=== PATIENT | male | born 1980 | race African-American/Black ===

== ENCOUNTER 2018-05-09 18:17 | Observation (INO) ==
[2018-05-09 21:09] LABS: Baso # (Auto) 0.1 th/mm3 (0.0-0.2); Eos # (Auto) 0.1 th/mm3 (0.0-0.4); Eos % (Auto) 1.3 % (0.0-4.0); Hematocrit 45.7 % (39.0-51.0); Lymph # (Auto) 2.1 th/mm3 (1.0-4.8); Lymph % (Auto) 27.4 % (9.0-44.0); Mean Corpuscular HGB Conc 32.8 % (32.0-36.0); Mean Corpuscular Volume 85.3 fL (80.0-100.0); Mean Platelet Volume 11.1 fL (7.0-11.0); Mono # (Auto) 0.7 th/mm3 (0.0-0.9); Neut # (Auto) 4.6 th/mm3 (1.8-7.7); Neut % (Auto) 61.3 % (16.0-70.0); Platelet Count 132 th/mm3 (150-450); Red Blood Count 5.36 mil/mm3 (4.50-5.90); Red Cell Distribution Width 12.4 % (11.6-17.2); White Blood Count 7.5 th/mm3 (4.0-11.0)
[2018-05-09 21:12] LABS: Bilirubin,Urine Negative (Negative); Clarity,Urine Clear (Clear); Color,Urine Colorless (Yellw/Straw); Glucose,Urine (UA) 500 or Greater mg/dL (Negative); Leukocyte Esterase,Urine Negative (Negative); Nitrite,Urine Negative (Negative); Specific Gravity,Urine 1.036 (1.002-1.035)
[2018-05-09 21:44] LABS: Alanine Aminotransferase 31 U/L (12-78); Alkaline Phosphatase 124 U/L (45-117); Anion Gap 9 meq/L (5-15); Aspartate Aminotransferase 19 U/L (15-37); Blood Urea Nitrogen 12 mg/dL (7-18); Calcium 8.9 mg/dL (8.5-10.1); Carbon Dioxide 26.1 meq/L (21.0-32.0); Chloride 96 meq/L (98-107); Glomerular Filtration Rate 68 mL/min (>89); Sodium 131 meq/L (136-145); Total Protein 7.7 g/dL (6.4-8.2)
[2018-05-09 21:47] LABS: Glucose,Random 562 mg/dL (74-106)
[2018-05-09] MEDS ORDERED: Sod Chloride 0.9% Inj 1,000 ML IV.SIG ONE ×2 (22:02→23:21)
--- NOTE | 2018-05-09 22:18 | ED ---
HPI General Chief complaint: Weakness Stated complaint: gen weakness Time Seen by Provider: 05/09/18 22:02 Source: patient Mode of arrival: ambulatory Limitations: no limitations History of Present Illness HPI Narrative: Patient is a 38-year-old male coming in complaining of a few days of excessive thirst increased urination feeling weak somewhat confused. He has a family history of diabetes but he does not have diabetes himself he has no medical history he appears to be a very fit 38-year-old male fingerstick and chemistry on the lab initial blood work done from the ER waiting room is a glucose of 526 patient denies having any knowledge of having diabetes prior. But is having classic polydipsia polyuria and weakness patient's vitals in the ER within normal limits he is given a liter of fluid 4 units of insulin will probably be admitted for education and starting on a anti-hyper glycemic denies diet diarrhea denies nausea denies vomiting denies abdominal pain he does not appear to be breathing heavy does not have any signs of being acidotic he did not take any medication for this he has not seen a doctor in a while MD Complaint: generalized weakness Related Data Previous Rx's Medication Instructions Recorded blood sugar diagnostic [OneTouch #90 each 05/10/18 Ultra Blue Test Strip] blood-glucose meter [Blood Glucose #1 each 05/10/18 Monitoring] insulin detemir U-100 [Levemir 12 unit SUB-Q HS #1 vial 05/10/18 U-100 Insulin] insulin regular human [Novolin R 7 unit SUB-Q TIDAC #1 vial 05/10/18 Regular U-100 Insuln] insulin syringe-needle U-100 #100 each 05/10/18 lancets [BD Ultra Fine Lancets] #100 each 05/10/18 Allergies Allergy/AdvReac Type Severity Reaction Status Date / Time No Known Allergies Allergy Unverified 05/09/18 19:47 Review of Systems ROS: all other systems reviewed are negative (Polydipsia polyuria generalized weakness mild confusion) [facility] Medical History Medical History Patient denies medical problems (Acute) Surgical History Surgical History No history of previous surgery (Acute) Family History Family History Other Diabetes Social History Social History Substance History: No History of Abuse Second Hand Smoke Exposure: No Smoking Status: Former smoker How Often Do You Have a Drink Containing Alcohol: Monthly or less Recent Travel in [place] within the Last 8 Weeks: No Recent Out of Country Travel within the Last 8 Weeks: No Immunization History Tetanus Immunization: >5 Years Hx Influenza Vaccine This Season: No Exam Narrative Exam Narrative: GENERAL: Nontoxic appearing awake alert no signs of acidosis SKIN: Warm and dry. HEAD: Atraumatic. Normocephalic. EYES: Pupils equal and round. No scleral icterus. No injection or drainage. ENT: No nasal bleeding or discharge. Mucous membranes pink and moist. NECK: Trachea midline. No JVD. CARDIOVASCULAR: Regular rate and rhythm. RESPIRATORY: No accessory muscle use. Clear to auscultation. Breath sounds equal bilaterally. GASTROINTESTINAL: Abdomen soft, non-tender, nondistended. Hepatic and splenic margins not palpable. MUSCULOSKELETAL: Extremities without clubbing, cyanosis, or edema. No obvious deformities. NEUROLOGICAL: Awake and alert. No obvious cranial nerve deficits. Motor grossly within normal limits. Five out of 5 muscle strength in the arms and legs. Normal speech. PSYCHIATRIC: Appropriate mood and affect; insight and judgment normal. Course Initial Documented Vital Signs Temperature 98.2 F 05/09/18 19:33 Pulse Rate 75 05/09/18 19:33 Respiratory Rate 16 05/09/18 19:33 Blood Pressure 129/77 05/09/18 19:33 Pulse Oximetry 99 05/09/18 19:33 Last Documented Vital Signs Temperature 98.2 F 05/10/18 16:00 Pulse Rate 70 05/10/18 16:00 Respiratory Rate 18 05/10/18 16:00 Blood Pressure 111/79 05/10/18 16:00 Pulse Oximetry 99 05/10/18 16:00 Medical Decision Making [facility] Narrative Medical decision making narrative: IV fluid and INSULIN no anion gap and no need for insulin drip at this time in ER admitted for further managemt of his new onset diabetes Medical Screen Exam Complete: Yes Emergency Medical Condition: Yes Differential Diagnosis Differential Diagnosis: This is new onset diabetes versus a viral infection causing pancreatitis causing lack of insulin causing new onset diabetes versus exogenous ingestion of large amounts of sugar versus other Lab Data Result diagrams: 05/09/18 20:45 05/09/18 20:45 Lab Results 05/09/18 05/09/18 05/09/18 Range/Units 20:18 20:45 20:45 WBC 7.5 (4.0-11.0) th/mm3 RBC 5.36 (4.50-5.90) mil/mm3 Hgb 15.0 (13.0-17.0) gm/dL Hct 45.7 (39.0-51.0) % MCV 85.3 (80.0-100.0) fL MCH 28.0 (27.0-34.0) pg MCHC 32.8 (32.0-36.0) % RDW 12.4 (11.6-17.2) % Plt Count 132 L (150-450) th/mm3 MPV 11.1 H (7.0-11.0) fL Neut % (Auto) 61.3 (16.0-70.0) % Lymph % (Auto) 27.4 (9.0-44.0) % [place] % (Auto) 9.0 H (0.0-8.0) % Eos % (Auto) 1.3 (0.0-4.0) % Baso % (Auto) 1.0 (0.0-2.0) % Neut # (Auto) 4.6 (1.8-7.7) th/mm3 Lymph # (Auto) 2.1 (1.0-4.8) th/mm3 [place] # (Auto) 0.7 (0.0-0.9) th/mm3 Eos # (Auto) 0.1 (0.0-0.4) th/mm3 Baso # (Auto) 0.1 (0.0-0.2) th/mm3 WBC Differential . Differential Comment Auto diff final Sodium 131 L (136-145) meq/L Potassium 4.0 (3.5-5.1) meq/L Chloride 96 L (98-107) meq/L Carbon Dioxide 26.1 (21.0-32.0) meq/L Anion Gap 9 (5-15) meq/L BUN 12 (7-18) mg/dL Creatinine 1.19 (0.60-1.30) mg/dL Estimated GFR 68 L (>89) mL/min POC Glucose (68-110) mg/dl Random Glucose 562 H* (74-106) mg/dL Hemoglobin A1c (4.3-6.0) % Insulin Level (2.0-19.6) uIU/mL Calcium 8.9 (8.5-10.1) mg/dL Total Bilirubin 0.5 (0.2-1.0) mg/dL AST 19 (15-37) U/L ALT 31 (12-78) U/L Alkaline Phosphatase 124 H (45-117) U/L Troponin I Less than 0.02 L (0.02-0.05) ng/mL Total Protein 7.7 (6.4-8.2) g/dL Albumin 4.0 (3.4-5.0) g/dL Beta-Hydroxybutyric Acd (0.00-0.39) mmol/L Urine Color Colorless (Yellw/Straw) Urine Clarity Clear (Clear) Urine pH 6.0 (5.0-8.5) Ur Specific [place] 1.036 H (1.002-1.035) Urine Protein Negative (Neg-Trace) mg/dL Urine Glucose (UA) 500 or greater (Negative) mg/dL Urine Ketones Trace H (Negative) mg/dL Urine Occult Blood Small H (Negative) Urine Nitrate Negative (Negative) Urine Bilirubin Negative (Negative) Urine Urobilinogen Less than 2 (Less than 2) mg/dL Ur Leukocyte Esterase Negative (Negative) Urine WBC 1 (0-5) /hpf Micro UA Comment Culture not ind Ur Microscopic Review Not Reportable Urine Culture Comments Culture not ind 05/09/18 05/09/18 05/10/18 Range/Units 20:45 20:45 08:52 WBC (4.0-11.0) th/mm3 RBC (4.50-5.90) mil/mm3 Hgb (13.0-17.0) gm/dL Hct (39.0-51.0) % MCV (80.0-100.0) fL MCH (27.0-34.0) pg MCHC (32.0-36.0) % RDW (11.6-17.2) % Plt Count (150-450) th/mm3 MPV (7.0-11.0) fL Neut % (Auto) (16.0-70.0) % Lymph % (Auto) (9.0-44.0) % [place] % (Auto) (0.0-8.0) % Eos % (Auto) (0.0-4.0) % Baso % (Auto) (0.0-2.0) % Neut # (Auto) (1.8-7.7) th/mm3 Lymph # (Auto) (1.0-4.8) th/mm3 [place] # (Auto) (0.0-0.9) th/mm3 Eos # (Auto) (0.0-0.4) th/mm3 Baso # (Auto) (0.0-0.2) th/mm3 WBC Differential Differential Comment Sodium (136-145) meq/L Potassium (3.5-5.1) meq/L Chloride (98-107) meq/L Carbon Dioxide (21.0-32.0) meq/L Anion Gap (5-15) meq/L BUN (7-18) mg/dL Creatinine (0.60-1.30) mg/dL Estimated GFR (>89) mL/min POC Glucose 215 H (68-110) mg/dl Random Glucose (74-106) mg/dL Hemoglobin A1c 16.3 H (4.3-6.0) % Insulin Level (2.0-19.6) uIU/mL Calcium (8.5-10.1) mg/dL Total Bilirubin (0.2-1.0) mg/dL AST (15-37) U/L ALT (12-78) U/L Alkaline Phosphatase (45-117) U/L Troponin I (0.02-0.05) ng/mL Total Protein (6.4-8.2) g/dL Albumin (3.4-5.0) g/dL Beta-Hydroxybutyric Acd 0.60 H (0.00-0.39) mmol/L Urine Color (Yellw/Straw) Urine Clarity (Clear) Urine pH (5.0-8.5) Ur Specific [place] (1.002-1.035) Urine Protein (Neg-Trace) mg/dL Urine Glucose (UA) (Negative) mg/dL Urine Ketones (Negative) mg/dL Urine Occult Blood (Negative) Urine Nitrate (Negative) Urine Bilirubin (Negative) Urine Urobilinogen (Less than 2) mg/dL Ur Leukocyte Esterase (Negative) Urine WBC (0-5) /hpf Micro UA Comment Ur Microscopic Review Urine Culture Comments 05/10/18 05/10/18 05/10/18 Range/Units 11:20 12:26 12:52 WBC (4.0-11.0) th/mm3 RBC (4.50-5.90) mil/mm3 Hgb (13.0-17.0) gm/dL Hct (39.0-51.0) % MCV (80.0-100.0) fL MCH (27.0-34.0) pg MCHC (32.0-36.0) % RDW (11.6-17.2) % Plt Count (150-450) th/mm3 MPV (7.0-11.0) fL Neut % (Auto) (16.0-70.0) % Lymph % (Auto) (9.0-44.0) % [place] % (Auto) (0.0-8.0) % Eos % (Auto) (0.0-4.0) % Baso % (Auto) (0.0-2.0) % Neut # (Auto) (1.8-7.7) th/mm3 Lymph # (Auto) (1.0-4.8) th/mm3 [place] # (Auto) (0.0-0.9) th/mm3 Eos # (Auto) (0.0-0.4) th/mm3 Baso # (Auto) (0.0-0.2) th/mm3 WBC Differential Differential Comment Sodium (136-145) meq/L Potassium (3.5-5.1) meq/L Chloride (98-107) meq/L Carbon Dioxide (21.0-32.0) meq/L Anion Gap (5-15) meq/L BUN (7-18) mg/dL Creatinine (0.60-1.30) mg/dL Estimated GFR (>89) mL/min POC Glucose 263 H 230 H (68-110) mg/dl Random Glucose (74-106) mg/dL Hemoglobin A1c (4.3-6.0) % Insulin Level 4.8 (2.0-19.6) uIU/mL Calcium (8.5-10.1) mg/dL Total Bilirubin (0.2-1.0) mg/dL AST (15-37) U/L ALT (12-78) U/L Alkaline Phosphatase (45-117) U/L Troponin I (0.02-0.05) ng/mL Total Protein (6.4-8.2) g/dL Albumin (3.4-5.0) g/dL Beta-Hydroxybutyric Acd (0.00-0.39) mmol/L Urine Color (Yellw/Straw) Urine Clarity (Clear) Urine pH (5.0-8.5) Ur Specific [place] (1.002-1.035) Urine Protein (Neg-Trace) mg/dL Urine Glucose (UA) (Negative) mg/dL Urine Ketones (Negative) mg/dL Urine Occult Blood (Negative) Urine Nitrate (Negative) Urine Bilirubin (Negative) Urine Urobilinogen (Less than 2) mg/dL Ur Leukocyte Esterase (Negative) Urine WBC (0-5) /hpf Micro UA Comment Ur Microscopic Review Urine Culture Comments 05/10/18 Range/Units 16:43 WBC (4.0-11.0) th/mm3 RBC (4.50-5.90) mil/mm3 Hgb (13.0-17.0) gm/dL Hct (39.0-51.0) % MCV (80.0-100.0) fL MCH (27.0-34.0) pg MCHC (32.0-36.0) % RDW (11.6-17.2) % Plt Count (150-450) th/mm3 MPV (7.0-11.0) fL Neut % (Auto) (16.0-70.0) % Lymph % (Auto) (9.0-44.0) % [place] % (Auto) (0.0-8.0) % Eos % (Auto) (0.0-4.0) % Baso % (Auto) (0.0-2.0) % Neut # (Auto) (1.8-7.7) th/mm3 Lymph # (Auto) (1.0-4.8) th/mm3 [place] # (Auto) (0.0-0.9) th/mm3 Eos # (Auto) (0.0-0.4) th/mm3 Baso # (Auto) (0.0-0.2) th/mm3 WBC Differential Differential Comment Sodium (136-145) meq/L Potassium (3.5-5.1) meq/L Chloride (98-107) meq/L Carbon Dioxide (21.0-32.0) meq/L Anion Gap (5-15) meq/L BUN (7-18) mg/dL Creatinine (0.60-1.30) mg/dL Estimated GFR (>89) mL/min POC Glucose 251 H (68-110) mg/dl Random Glucose (74-106) mg/dL Hemoglobin A1c (4.3-6.0) % Insulin Level (2.0-19.6) uIU/mL Calcium (8.5-10.1) mg/dL Total Bilirubin (0.2-1.0) mg/dL AST (15-37) U/L ALT (12-78) U/L Alkaline Phosphatase (45-117) U/L Troponin I (0.02-0.05) ng/mL Total Protein (6.4-8.2) g/dL Albumin (3.4-5.0) g/dL Beta-Hydroxybutyric Acd (0.00-0.39) mmol/L Urine Color (Yellw/Straw) Urine Clarity (Clear) Urine pH (5.0-8.5) Ur Specific [place] (1.002-1.035) Urine Protein (Neg-Trace) mg/dL Urine Glucose (UA) (Negative) mg/dL Urine Ketones (Negative) mg/dL Urine Occult Blood (Negative) Urine Nitrate (Negative) Urine Bilirubin (Negative) Urine Urobilinogen (Less than 2) mg/dL Ur Leukocyte Esterase (Negative) Urine WBC (0-5) /hpf Micro UA Comment Ur Microscopic Review Urine Culture Comments Imaging Data Radiologist's impression: Chest X-Ray 05/09/18 22:03 CONCLUSION: No acute cardiopulmonary disease. Discharge Plan Discharge Disposition Patient Disposition: 01 Discharge Home Discharge Condition Condition: Stable Discharge Order Discharge Orders: Discharge Order (Routine); Ordered 05/10/18 Ordered By: Leandro Lo Physicians Team ED Provider: Monico Olivo Primary Care Provider: UNKNOWN, Attending Provider: Leandro Lo Status ED Status: Left Department Discharge Information Discharge Date/Time: 05/10/18 02:29
--- NOTE | 2018-05-09 22:35 | XR ---
EXAM DATE: 05/09/2018 10:25 PM EDT AGE/SEX: 38 years / Male INDICATIONS: Shortness of breath. General weakness. CLINICAL DATA: This is the patient's initial encounter. Patient reports that signs and symptoms have been present for 3 days and indicates a pain score of 0/10. MEDICAL/SURGICAL HISTORY: . Diabetes. None. COMPARISON: No prior exams available for comparison. FINDINGS: A single AP view of the chest demonstrates the lungs to be symmetrically aerated without evidence of mass, infiltrate or effusion. The cardiomediastinal contours are unremarkable. Osseous structures a re intact. CONCLUSION: No acute cardiopulmonary disease. Electronically signed by: Parker Weldon MD 05/09/2018 10:34 PM EDT
[2018-05-09] MEDS ORDERED: Sod Chloride 0.9% Inj 1,000 ML IV.CONT SCH (23:30)
[2018-05-10] MEDS ORDERED: Acetaminophen 325 MG Tablet PO PRN (00:16)
[2018-05-10] MEDS ORDERED: Dextrose 50% in Water 50 ML Vial IV.PUSH PRN (00:18)
--- NOTE | 2018-05-10 01:39 | P.HP ---
History of Present Illness Service: [facility] Primary Care Physician: UNKNOWN History of Present Illness: 38-year-old male with no significant past medical history presents to the emergency department for evaluation of dehydration, blurry vision, polyuria and polydipsia 3 weeks. The patient denies any chest pain or shortness of breath. No abdominal pain. No nausea/vomiting/diarrhea. No fevers/chills. No lateralizing signs/symptoms. The patient reports he has been drinking and urinating much more frequently than normal. He has a family history of diabetes mellitus. He denies any burning with urination. No hematuria. Review of Systems All other systems reviewed negative except as stated in HPI [facility] - History History Provided By: Patient - Medical History Medical History: Medical History (Last Updated 05/09/18 @ 19:49 by Chapis Mcghee RN) Patient denies medical problems - Surgical History Surgical History: Surgical History (Last Updated 05/09/18 @ 19:49 by Chapis Mcghee RN) No history of previous surgery - Family History Family History: Family History (Last Updated 05/10/18 @ 00:20 by CHASE Obrien) Other Diabetes - Tobacco History Smoking Status: Never smoker - Alcohol History How Often Do You Have a Drink Containing Alcohol: Monthly or less - Substance Use History Substance History: No History of Abuse - Travel History Recent Travel in the [facility] Within the Last 8 Weeks: No - Immunization History Tetanus Immunization: >5 Years Hx Influenza Vaccine This Season: No Medications and Allergies Active Medications: Active Medications Acetaminophen (Tylenol) 650 mg PO Q4H PRN PRN Reason: Temp > 100.4 Dextrose (D50w Vial) 50 ml IV.PUSH UNSCH PRN PRN Reason: PER HYPOGLYCEMIA PROTOCOL Glucagon (Glucagon Inj) 1 mg OTHER PRN PRN PRN Reason: for Hypoglycemia Protocol Sodium Chloride (Ns Inj) 1,000 mls @ 125 mls/hr IV.CONT .Q8H KEON Last Admin: 05/10/18 00:07 Dose: 125 mls/hr Insulin Aspart (Novolog Insulin Correctional Sugar Inj) 0 unit SQ ACHS KEON; Protocol Ondansetron HCl (Zofran Inj) 4 mg IV.PUSH Q6H PRN PRN Reason: NAUSEA OR VOMITING Allergies Allergy/AdvReac Type Severity Reaction Status Date / Time No Known Allergies Allergy Unverified 09/10/18 19:47 Exam Vital signs: Vital Signs 05/09/18 19:33 Temperature 98.2 F Pulse Rate 75 Respiratory Rate 16 Blood Pressure 129/77 Pulse Oximetry 99 Intake & Output 05/09/18 05/09/18 05/10/18 06:59 18:59 06:59 Intake Total 1000 / 1000 Output Total 800 / 800 Balance 200 / 200 Weight 90.718 kg Intake: IV 1000 / 1000 NS Inj 1,000 ML @ Wide Open IV. 1000 / 1000 SIG BOLUS ONE Rx#:[id number] Output: Urine 800 / 800 Narrative: Gen.: No acute distress Head: Normocephalic. Atraumatic. EENT: Pupils equal round and reactive to light. Nose without drainage. Airway intact. Throat without injection. Cardiovascular: Regular rate and rhythm. No murmurs, rubs or gallops. Respiratory: Lungs clear to auscultation bilaterally. No wheezes or rhonchi. Abdomen: Soft, nontender, nondistended. No peritoneal signs. Musculoskeletal: No gross deformities. No edema. Skin: No obvious rashes or erythema. Neuro: Sensory and motor grossly intact. Cranial nerves II through XII grossly intact. Results - Labs CBC & Chem 7: 05/09/18 20:45 05/09/18 20:45 Labs: Laboratory Results - last 24 hr 05/09/18 05/09/18 05/09/18 20:18 20:45 20:45 WBC 7.5 RBC 5.36 Hgb 15.0 Hct 45.7 MCV 85.3 MCH 28.0 MCHC 32.8 RDW 12.4 Plt Count 132 L MPV 11.1 H Neut % (Auto) 61.3 Lymph % (Auto) 27.4 [place] % (Auto) 9.0 H Eos % (Auto) 1.3 Baso % (Auto) 1.0 Neut # (Auto) 4.6 Lymph # (Auto) 2.1 [place] # (Auto) 0.7 Eos # (Auto) 0.1 Baso # (Auto) 0.1 WBC Differential . Differential Comment Auto diff final Sodium 131 L Potassium 4.0 Chloride 96 L Carbon Dioxide 26.1 Anion Gap 9 BUN 12 Creatinine 1.19 Estimated GFR 68 L Random Glucose 562 H* Calcium 8.9 Total Bilirubin 0.5 AST 19 ALT 31 Alkaline Phosphatase 124 H Troponin I Less than 0.02 L Total Protein 7.7 Albumin 4.0 Beta-Hydroxybutyric Acd Urine Color Colorless Urine Clarity Clear Urine pH 6.0 Ur Specific [place] 1.036 H Urine Protein Negative Urine Glucose (UA) 500 or greater Urine Ketones Trace H Urine Occult Blood Small H Urine Nitrate Negative Urine Bilirubin Negative Urine Urobilinogen Less than 2 Ur Leukocyte Esterase Negative Urine WBC 1 Micro UA Comment Culture not ind Ur Microscopic Review Not Reportable Urine Culture Comments Culture not ind 05/09/18 20:45 WBC RBC Hgb Hct MCV MCH MCHC RDW Plt Count MPV Neut % (Auto) Lymph % (Auto) [place] % (Auto) Eos % (Auto) Baso % (Auto) Neut # (Auto) Lymph # (Auto) [place] # (Auto) Eos # (Auto) Baso # (Auto) WBC Differential Differential Comment Sodium Potassium Chloride Carbon Dioxide Anion Gap BUN Creatinine Estimated GFR Random Glucose Calcium Total Bilirubin AST ALT Alkaline Phosphatase Troponin I Total Protein Albumin Beta-Hydroxybutyric Acd 0.60 H Urine Color Urine Clarity Urine pH Ur Specific [place] Urine Protein Urine Glucose (UA) Urine Ketones Urine Occult Blood Urine Nitrate Urine Bilirubin Urine Urobilinogen Ur Leukocyte Esterase Urine WBC Micro UA Comment Ur Microscopic Review Urine Culture Comments - Imaging Impressions Chest X-Ray 05/09/18 22:03 CONCLUSION: No acute cardiopulmonary disease. Caprini VTE Risk Assessment Caprini VTE Risk Assessment: No/Low Risk (score <= 1) Caprini Risk Assessment Model: Point Value = 1 Point Value = 2 Point Value = 3 Point Value = 5 Age 41-60 Minor surgery BMI > 25 kg/m2 Swollen legs Varicose veins or History of unexplained or recurrent spontaneous Oral contraceptives or hormone replacement Sepsis (< 1 month) Serious lung disease, including pneumonia (< 1 month) Abnormal pulmonary function Acute myocardial infarction Congestive heart failure (< 1 month) History of inflammatory bowel disease Medical patient at bed rest Age 61-74 Arthroscopic surgery Major open surgery (> 45 min) Laparoscopic surgery (> 45 min) Malignancy Confined to bed (> 72 hours) Immobilizing plaster cast Central venous access Age >= 75 History of VTE Family history of VTE Factor V Leiden Prothrombin [id number] Lupus anticoagulant Anticardiolipin antibodies Elevated serum homocysteine Heparin-induced thrombocytopenia Other congenital or acquired thrombophilia Stroke (< 1 month) Elective arthroplasty Hip, pelvis, or leg fracture Acute spinal cord injury (< 1 month) Prophylaxis Regimen: Total Risk Factor Score Risk Level Prophylaxis Regimen 0-1 Low Early ambulation 2 Moderate Order ONE of the following: *Sequential Compression Device (SCD) *Heparin 5000 units SQ BID 3-4 Higher Order ONE of the following medications: *Heparin 5000 units SQ TID *Enoxaparin/Lovenox 40 mg SQ daily (WT < 150 kg, CrCl > 30 mL/min) *Enoxaparin/Lovenox 30 mg SQ daily (WT < 150 kg, CrCl > 10-29 mL/min) *Enoxaparin/Lovenox 30 mg SQ BID (WT < 150 kg, CrCl > 30 mL/min) AND/OR *Sequential Compression Device (SCD) 5 or more Highest Order ONE of the following medications: *Heparin 5000 units SQ TID (Preferred with Epidurals) *Enoxaparin/Lovenox 40 mg SQ daily (WT < 150 kg, CrCl > 30 mL/min) *Enoxaparin/Lovenox 30 mg SQ daily (WT < 150 kg, CrCl > 10-29 mL/min) *Enoxaparin/Lovenox 30 mg SQ BID (WT < 150 kg, CrCl > 30 mL/min) AND *Sequential Compression Device (SCD) Assessment and Plan - Plan Assessment/plan: 1. New onset diabetes mellitus Patient with blood glucose of 562, beta hydroxybutyrate of 0.6 A1c pending IV fluid hydration Sliding-scale insulin Patient with no insurance or PCP, case management consulted to assist in medications and follow-up FEN Diabetic diet NS at 1 25 cc/hour Electrolytes: Monitor and replete as needed
[2018-05-10] MEDS: Sod Chloride 0.9% Inj 1,000 ML IV.CONT SCH ×2 (02:51→10:13)
[2018-05-10 07:53] VITALS: RESP 18
[2018-05-10] MEDS: Insulin NovoLOG Aspart Correctional Sugar Inj SQ SCH ×2 (10:12→13:37)
[2018-05-10 12:23] VITALS: PULSE 70; O2SAT 99
--- NOTE | 2018-05-10 13:28 | ECG ---
Date Performed: 05/09/2018 Time Performed: 20:41:46 PTAGE: 38 years EKG: Sinus rhythm WITH MARKED SINUS ARRHYTHMIA ST ELEVATION, PROBABLY EARLY REPOLARIZATION BORDERLINE ECG NO PREVIOUS TRACING DOCTOR: Darwin Gama Interpretating Date/Time 05/10/2018 13:27:43
[2018-05-10 16:18] VITALS: BP 111/79; TEMP 98.2
--- NOTE | 2018-05-10 16:26 | P.PNADD ---
Addendum to Inpatient Note Reason for Addendum: Additional Documentation Additional information: Patient appeared to be in no acute distress Says symptoms have resolved Lying in bed, unlabored breathing . Tolerating p.o. intake well. Blood sugars much more controlled. No increased anion gap. Patient underwent diabetic counseling education, given diabetic testing supplies. Counseled on how to appropriately manage his basal and bolus insulin. Patient has met maximal benefit from hospitalization and is clinically stable for discharge. Patient was informed that he will have to follow-up with the PCP where he can ultimately finalize his diagnosis of either type I or type 2 diabetes.
[2018-05-10 16:43] LABS: Hemoglobin A1c 16.3 % (4.3-6.0)
== END 2018-05-10 18:03 | disposition home or self-care (01) ==
LOC: NEDA 18:17 → NEPC 18:17 → NEPHCDU 05-10 02:28
PROVIDERS: ADMIT Hospitalist; ATTEND Hospitalist